=== PATIENT | female | born 1995 | race African-American/Black ===

== ENCOUNTER 2023-05-12 20:47 | Emergency (ER) | payer MEDICAID ==
[~2023-05-12] VITALS: Ht 170.2 cm; Wt 75.0 kg
[2023-05-12 21:16] VITALS: BP 120/84; PULSE 88; RESP 18; TEMP 98.1; O2SAT 100
[2023-05-12 21:55] LABS: CLARITY URINE CLOUDY (CLEAR); COLOR URINE YELLOW (YELLOW); GLUCOSE URINE TRACE (NEGATIVE); KETONES URINE 1+ (NEGATIVE); LEUKOCYTE ESTERASE URINE NEGATIVE (NEGATIVE); NITRITE URINE NEGATIVE (NEGATIVE); OCCULT BLOOD URINE NEGATIVE (NEGATIVE); PH URINE 5.5 (4.5-8.0); PROTEIN URINE TRACE (NEGATIVE); SPECIFIC GRAVITY URINE 1.037 (1.005-1.030)
[2023-05-12 21:57] LABS: BACTERIA URINE NONE SEEN; RBC URINE 0-2 /hpf (0-2); SQUAMOUS EPITHELIAL CELL URINE 3+ /lpf (RARE/1+); WBC URINE 0-2 /hpf (0-2); YEAST URINE NONE SEEN
[2023-05-12 21:58] LABS: UCG SCREEN POSITIVE
[2023-05-12] MEDS ORDERED: ONDANSETRON HCL 4MG/2ML INJ IV ONE (23:15)
[2023-05-12] MEDS ORDERED: SODIUM CHLORIDE 0.9% 1,000 ML IV ONE (23:15)
[2023-05-12 23:55] LABS: BASOPHILS % 0.8 % (0.0-2.0); EOSINOPHILS % 0.6 % (0.0-5.0); HEMATOCRIT. 39.8 % (36.0-48.0); HEMOGLOBIN. 13.4 g/dL (12.0-16.0); LYMPHOCYTES % 25.4 % (20.0-50.0); MEAN CORPUSCULAR HEMOGLOBIN 31.9 pg (28.0-32.0); MEAN CORPUSCULAR HGB CONC 33.6 g/dL (31.0-37.0); MEAN CORPUSCULAR VOLUME 94.8 fL (81.0-99.0); MONOCYTES % 7.3 % (2.0-8.0); NEUTROPHILS % 65.9 % (40.0-76.0); PLATELET 384 x1000/uL (130-400); RED BLOOD CELL COUNT 4.19 mill/uL (4.2-5.4); RED CELL DISTRIBUTION WIDTH 12.5 % (11.6-14.6); WHITE BLOOD COUNT 8.2 x1000/uL (4.5-11.0)
[2023-05-13 00:02] LABS: CHLORIDE 103 mEq/L (98-107); INDEX HEMOLYSI 1 (1-3); INDEX ICTERIC 1 (1-4); INDEX LIPEMIC 1 (1-3); POTASSIUM 3.3 mEq/L (3.5-5.1); SODIUM 134 mEq/L (136-145)
[2023-05-13 00:27] LABS: ALANINE AMINOTRANSFERASE 13 IU/L (13-61); ALBUMIN 4.1 g/dL (3.4-5.0); ASPARTATE AMINOTRANSFERASE 8 IU/L (15-37); B-HCG QUANTITATIVE 60396 mIU/mL (<3); BILIRUBIN TOTAL 0.3 mg/dL (0.1-1.0); CALCIUM 9.3 mg/dL (8.5-10.1); CARBON DIOXIDE 28 mEq/L (21-32); CREATININE 0.5 mg/dL (0.6-1.3); GLUCOSE 121 mg/dL (70-105); UREA NITROGEN BLOOD 7 mg/dL (7-21)
[2023-05-13] MEDS ORDERED: DIPHENHYDRAMINE 50MG/ML VIAL IV ONE (02:15)
[2023-05-13] MEDS ORDERED: PYRIDOXINE 100 MG/ML 1ML IM ONE (02:15)
[2023-05-13] MEDS ORDERED: DOXY1TAB3 MT (02:41)
[2023-05-13] MEDS ORDERED: ONDANSETRON HCL 4MG/2ML INJ IV ONE (02:45)
[2023-05-13] MEDS ORDERED: DIPHENHYDRAMINE 50MG/ML VIAL IV NR (03:00)
[2023-05-13] MEDS ORDERED: ONDANSETRON HCL 4MG/2ML INJ IV NR (03:00)
[2023-05-13] MEDS ORDERED: ONDA4TAB11 PO (03:25)
== END 2023-05-13 04:44 | disposition home or self-care (01) ==
LOC: ER 20:47
DX: O21.0 Mild hyperemesis gravidarum (principal); Z3A.01 Less than 8 weeks gestation of pregnancy
CPT/HCPCS: 99283; 80053; 81003; 81025; 84702; 83690; 85025; 36415; J7030; J1200; J2405; J3415

== ENCOUNTER 2024-02-16 14:20 | Emergency (ER) | payer MEDICAID ==
[~2024-02-16] VITALS: Ht 170.2 cm; Wt 74.0 kg
[~2024-02-16 14:20] MED LIST: DOXY1TAB3 MT; ONDA4TAB11 PO
[2024-02-16 14:29] VITALS: BP 131/83; PULSE 75; RESP 16; TEMP 98.3; O2SAT 100
[2024-02-16] MEDS ORDERED: ACET-2708 MT (16:36)
== END 2024-02-16 17:08 | disposition home or self-care (01) ==
LOC: ER 14:20
DX: M65.4 Radial styloid tenosynovitis [de Quervain] (principal); Z88.6 Allergy status to analgesic agent
CPT/HCPCS: 73110; 81025; 99283